=== PATIENT | male | born 1965 | race Two or more races ===

== ENCOUNTER 2022-09-15 08:28 | Emergency (ER) | payer BC, OTHER ==
[2022-09-15 08:55] VITALS: BP 147/83; PULSE 77; RESP 18; TEMP 98; BMI 30.3
[2022-09-15] MEDS ORDERED: LIDOCAINE 5% TOPICAL PATCH TP ONE (09:15)
[2022-09-15] MEDS ORDERED: KETOROLAC TROMETHAMINE 30 MG/1 ML VIAL IM ONE (09:15)
[2022-09-15] MEDS ORDERED: LIDOCAINE 5% TOPICAL PATCH ONE (09:44)
[2022-09-15] MEDS ORDERED: KETOROLAC TROMETHAMINE 30 MG/1 ML VIAL ONE (09:45)
[2022-09-15] MEDS ORDERED: LIDOCAINE PATCH REMOVAL MC ONE (22:00)
== END 2022-09-15 11:23 | disposition home or self-care (01) ==
LOC: JERFT 08:28 → JER 08:28 → JERFT 11:23
PROC: 3E0233Z Introduction of Anti-inflammatory into Muscle, Percutaneous Approach (ICD-10-PCS; principal; 2022-09-15)
DX: M54.41 Lumbago with sciatica, right side (principal)
CPT/HCPCS: 72100-TC-FY; 99284-25

== ENCOUNTER 2025-04-13 06:05 | Day surgery (SDC) | payer BC, OTHER ==
[2025-04-10 14:27] VITALS: BMI 29.2
[2025-04-13 09:48] VITALS: TEMP 97.9
[2025-04-13 10:17] VITALS: RESP 18
[2025-04-13 10:33] VITALS: BP 141/81; PULSE 77
== END 2025-04-13 10:34 | disposition home or self-care (01) ==
LOC: JASU-ENDO 06:05
PROVIDERS: ATTEND Internal Medicine Gastroenterology
PROC: 0DBM8ZX Excision of Descending Colon, Via Natural or Artificial Opening Endoscopic, Diagnostic (ICD-10-PCS; principal; 2025-04-13 08:30)
DX: Z12.11 Encounter for screening for malignant neoplasm of colon (principal); D12.4 Benign neoplasm of descending colon; K64.8 Other hemorrhoids; Z80.0 Family history of malignant neoplasm of digestive organs
CPT/HCPCS: 88305-TC